=== PATIENT | female | born 1965 | race Caucasian/White ===

== ENCOUNTER 2025-06-14 07:32 | Day surgery (SDC) | payer BC ==
[~2025-06-14 07:32] MED LIST: Sodium Chloride 0.9% 10 ML Syringe FLUSH PRN; Sodium Chloride 0.9% 10 ML Syringe FLUSH SCH
[2025-06-14] MEDS: Lactated Ringers 1,000 ML IV SCH (07:50)
[2025-06-14] MEDS ORDERED: Propofol 200 MG/20 ML SDV ONE (07:54)
[2025-06-14] MEDS ORDERED: fentaNYL 100 MCG/2 ML SDV ONE (07:54)
== END 2025-06-14 09:02 | disposition home or self-care (01) ==
LOC: JD.SDS 07:32
PROVIDERS: ATTEND Surgery
DX: K62.89 Other specified diseases of anus and rectum (principal); K64.4 Residual hemorrhoidal skin tags; K62.5 Hemorrhage of anus and rectum; Z79.899 Other long term (current) drug therapy
CPT/HCPCS: 45378; J2003; J2704; J3010; J7120